=== PATIENT | male | born 1960 | race Caucasian/White ===

== ENCOUNTER 2024-07-12 01:40 | Emergency (ER) | payer MEDICAID ==
[~2024-07-12] VITALS: Ht 170.2 cm; Wt 86.4 kg
[2024-07-12] MEDS ORDERED: LISI20TA28 PO (02:06)
[2024-07-12] MEDS: cloNIDine 0.1 mg tablet PO ONE (02:22)
[2024-07-12 02:53] VITALS: BP 170/106; PULSE 75; RESP 16; TEMP 98.1; O2SAT 100
== END 2024-07-12 02:55 ==
LOC: ER 01:42
DX: I10 Essential (primary) hypertension (principal); F15.10 Other stimulant abuse, uncomplicated; R53.83 Other fatigue
CPT/HCPCS: 99283